=== PATIENT | female | born 1975 | race Hispanic/Latino ===

== ENCOUNTER 2016-11-20 06:27 | Day surgery (SDC) | payer OTHER ==
[2016-11-20 06:34] VITALS: BMI 25.7
[2016-11-20 06:54] VITALS: RESP 18
[2016-11-20] MEDS ORDERED: Bupivacaine 0.5% Inj(30mL) ONE (07:09)
[2016-11-20] MEDS ORDERED: Lactated Ringer's 1,000 ML IV ONE ×3 (07:16→10:30)
[2016-11-20] MEDS ORDERED: Midazolam 2 MG/2 ML VIAL ONE (07:33)
[2016-11-20] MEDS ORDERED: ePHEDrine 50 mg/ml Inj ONE (07:33)
[2016-11-20] MEDS ORDERED: Propofol 10 mg/ml Inj (20 ML) ONE (07:33)
[2016-11-20] MEDS ORDERED: Rocuronium 10 mg/ml (5 ml) ONE (07:34)
[2016-11-20] MEDS ORDERED: Succinylcholine 200 mg/10 ml Inj IV ONE (07:34)
[2016-11-20 07:36] LABS: HEMATOCRIT 38.5 % (34.0-47.0); MEAN CELL VOLUME 79.4 fl (81.0-99.0); MEAN CORPUSCULAR HEMOGLOBIN 25.4 pg (27.0-31.0); RED CELL DISTRIBUTION WIDTH 13.3 % (11.5-14.5); WHITE BLOOD COUNT 7.3 K/uL (4.8-10.8)
[2016-11-20] MEDS ORDERED: Desflurane Inhalation Anesthetic Liq (240 ml) ONE (08:52)
[2016-11-20] MEDS ORDERED: Bupivacaine 0.5% 50 ML IJ ONE ×2 (09:30)
[2016-11-20] MEDS ORDERED: Neostigmine Methylsulfate 3mg/3ml Syringe IV ONE (10:03)
[2016-11-20] MEDS ORDERED: Dexamethasone 4 mg/1 ml IVP PRN (10:42)
[2016-11-20] MEDS ORDERED: Oxycodone/Acetaminophen 5/325 mg Tab PO PRN (10:57)
[2016-11-20] MEDS: HYDROmorphone 0.5 mg/0.5 ml ISec IVP PRN ×2 (11:05→11:35)
[2016-11-20 12:35] VITALS: O2SAT 100
[2016-11-20 19:01] VITALS: BP 106/64; PULSE 72; TEMP 98.3
--- NOTE | 2016-11-26 10:22 | OP ---
PROCEDURE DATE: 11/20/2016 SURGEON: Ignacio Hall MD FURNACE TENDER: Ash Pradhan MD from general surgery and Emma Gonzalez PA-C. PREOPERATIVE DIAGNOSES: Dysmenorrhea, dyspareunia, pelvic pain, resistant to medical treatment and rule out endometriosis. POSTOPERATIVE DIAGNOSES: Dysmenorrhea, dyspareunia, pelvic pain and confirmed pelvic endometriosis. PROCEDURE PERFORMED: Cystoscopy with bilateral ureteral catheterization, retrograde injection of indocyanine green into the right and left ureter, diagnostic hysteroscopy, laparoscopy, robotic da Jose excision of endometriosis , ovariolysis, bilateral ureterolysis and excision of a perirectal mass. Ablation of left ovarian endometriosis implant. Ddditionally lysis of adhesions performed by general surgery dr Kirkland dictated separately COMPLICATIONS: None. SAMPLES: Multiple samples of pathology of endometriosis containing tissue sent. DRAINS: Dillard catheter. ESTIMATED BLOOD LOSS: Minimal. BRIEF HISTORY: The patient is a 41-year-old with a long history of dysmenorrhea , dyspareunia and pelvic pain. Upon examination at the office, exquisite tenderness was elicited under direct examination as well as under ultrasonographic examination. The patient also had immunological findings suggestive of endometriosis. Prior to the surgery, she was counseled to the risks and benefits of the procedure, consented to the procedure, identifying the cause of the surgery, the likelihood of successful outcome, alternative modalities of treatment and potential risks were clearly discussed with ample opportunity for the patient to ask and received answers to questions. The patient was counseled, demonstrated understanding of the potential risks of the procedures including, but not limited to, bleeding, hemorrhage leading to transfusion,injury to the ureter, the bladder, the ureter, kidney, ureteral leak , urinary fistula, urinary retention, stent malfunction, uterine perforation, bowel perforation, infection and pelvic abscess. DESCRIPTION OF PROCEDURE: After consent was finally obtained, the patient was brought to the operating room and placed on the operating table in the supine position. An intravenous catheter was started, antibiotics were administered. After satisfactory anesthesia was induced, the patient was positioned in the dorsal lithotomy position. The patient was stable in cardiopulmonary parameters in this position and all areas prone to pressure were padded. The external genitalia were sterilely prepped and draped in a standard fashion as well as the abdomen. A timeout was performed. At this point, the cystoscope was inserted into the bladder under direct vision. Gaytan cystoscopy was performed and attention was paid to both ureteral orifices, which were in a normal anatomic position. The left ureteral orifice was catheterized with a [place] open-ended catheter. A solution of ICG was then injected for a total of 4 mL into the left ureter after ureteral catheter was advanced into the distal ureter. The ureteral catheter was then removed. Attention was paid to the right ureteral orifice. At this point, a ureteral catheter was advanced to the level of the right distal ureter. An additional 4 mL of indocyanine green were injected into the right ureter. The ureteral catheter was then removed. The bladder was inspected and noted to be free of tumor, stones or bleeding sources. The cystoscope was removed and a 16-Korean Dillard catheter was placed. At this point, attention was on the vaginal area where the speculum was placed in the vagina. The anterior lip of the cervix was grasped and the cervix was gently dilated. The hysteroscope was then inserted into the cavity and a gaytan hysteroscopy was performed. Attention was paid to both tubal ostia, which were normal in anatomic position. We noticed absence of fibroids, adenomyotic lesions, endometritis or any other abnormality in the endometrial cavity. At this point, the ValAuxogyn uterine manipulator was placed in the uterus and attention was on the abdomen. After re-gowning and re-gloving, an incision was made below the umbilicus with a standard open laparoscopy technique. The abdominal cavity was entered in a blunt fashion. At that point , a trocar was inserted and the abdomen was insufflated. Immediately we identifies significant adhesions in the area. After ensuring no damage was caused to the underlying [place] was called in to lyse the adhesions he will dictate separately After insufflating the abdominal cavity under direct visualization, 3 additional trocars were inserted, right lower quadrant, left mid quadrant and right upper quadrant. At this point, the da Jose robot Xi was brought to the field. The da Jose robot was docked and the procedure was commenced. Findings were as follows: There were areas of endometriosis on both the left pelvic sidewall, the posterior cervical area, the right pelvic sidewall and there was also an area of endometriosis in the right perirectal space. These were broad implants that appeared to be both superficial and deep in nature. At this point, attention was commenced, a brief enterolysis was performed, freeing the rectosigmoid from adhesions from the left pelvic sidewall. At this point, the ovary was elevated and the left pelvic side was seen. IC-Green fluorescent technology was used to identify the ureter. The peritoneum was then entered, incised and the retroperitoneal space was entered. A progressive dissection was performed thus lateralizing the ureter in a [id number] fashion all the way from the pelvic ring all the way down to the uterine vessel and a progressive dissection was performed and the area of peritoneum containing endometriosis was excised in a single sample. Additionally, an area of peritoneum containing endometriosis was excised in the left ovarian fossa on top of the uterine vessel with great care not to injure them. Throughout the procedure, the fluorescence was used intermittently to identify the ureter, making sure that it was neither devascularized nor damaged. At this point, attention was the right hand side of the pelvis where similarly the perineum was entered again and the retroperitoneal space was entered with great care to avoid the vessels and after using fluorescent technology, the ureter was progressively lateralized and a large area of peritoneum was excised and sent to pathology for confirmation of disease. Additionally, in the retrocervical area, there was an area suggestive of endometriosis. This area was excised also with great care and sent to pathology. At this point, an area of endometriosis was identified to be present in the right perirectal space. This was an area of deep infiltrating endometriosis which was progressively excised with extreme care not to enter the rectum or to injure the deep hemorrhoidal vessels or any nerves. an endometriosis implant on the left ovary was identified , since it was superficial it was completely ablated . Once this procedure was terminated, the rest of the abdomen was examined. The anterior bladder was examined, appeared to be normal. The pelvis was abundantly irrigated. It was checked for hemostasis, appeared to be excellent. There was no damage to the vessels, bowel or ureter. The da Jose robot at this point was undocked, the abdomen was desufflated and the trocars removed. The abdominal cavity was closed in layers with 0 PDS for the fascia and 4-0 Monocryl and Dermabond for the skin. At the end of the procedure, all instruments count were correct. The cervix was inspected. There was no bleeding from the cervix or from the uterus. Ignacio Hall MD cc: [id number] TT: 11/26/2016 10:20:59 en MTDD
== END 2016-11-20 19:00 | disposition home or self-care (01) ==
LOC: H.OPSURG 06:27
PROVIDERS: ATTEND Obstetrics & Gynecology Reproductive Endocrinology
DX: N80.0 Endometriosis of uterus (principal); E03.9 Hypothyroidism, unspecified